=== PATIENT | male | born 1990 | race Caucasian/White ===

== ENCOUNTER 2016-08-02 17:48 | Inpatient (IN) ==
--- NOTE | 2016-08-02 17:57 | Emergency Department Note ---
Disposition Clinical Impression: New onset type 1 diabetes mellitus, uncontrolled Disposition: Admitted As Inpatient Condition: Good Forms: ED Satisfaction Letter Time of Disposition: 18:00 General Adult HPI - General Chief complaint: ED Recheck/Abnormal Lab/Rx Stated complaint: hyperglycemia Time Seen by Provider: 08/02/16 17:51 Source: patient Mode of arrival: EMS Limitations: no limitations Nursing Notes Reviewed: Yes Vital Signs Reviewed: Yes - History of Present Illness HPI Narrative: 25 year old male who comes from the [place] with the complaints of nausea increase in thirst and urination for last 2 weeks. Patient was found to have a blood glucose of 612 at the [facility] was given insulin was sent here for evaluation. Has no history of diabetes. He is a family history of diabetes Pt Subjective Complaint: Elevated blood sugar Onset (ago): week(s) (2) - Related Data Allergies Allergy/AdvReac Type Severity Reaction Status Date / Time No Known Allergies Allergy Verified 08/02/16 17:49 Constitutional: Denies: fever, chills, weakness, weight change Eyes: Denies: eye pain, eye discharge, vision change ENT ED: Denies: ear pain, throat pain, dental pain, hearing loss, epistaxis, congestion, dysphagia Cardiovascular: Denies: chest pain, palpitations, dyspnea on exertion, edema, syncope Respiratory: Denies: cough, dyspnea, wheezes, hemoptysis, stridor Gastrointestinal: Reports: other (C). Denies: abdominal pain, nausea, vomiting , diarrhea, constipation, hematemesis, melena, hematochezia Genitourinary: Reports: other (Polyuria). Denies: urgency, dysuria, frequency, hematuria Musculoskeletal: Denies: back pain, neck pain, arthralgia, myalgia Integumentary: Denies: rash, abrasion, lesions Neurological: Denies: headache, weakness, numbness, paresthesias, confusion, abnormal gait, vertigo Psychiatric: Denies: anxiety, depression, suicidal thoughts, homicidal thoughts , auditory hallucinations, visual hallucinations Endocrine: Denies: fatigue Hematological/Lymphatic: Denies: easy bleeding, easy bruising Allergic/Immunologic: Denies: facial swelling, urticaria Physical Exam - General Limitations: no limitations General appearance: alert, in no apparent distress - Head Head exam: atraumatic, normocephalic, normal inspection - Eye Eye exam: Present: normal appearance, PERRL, EOMI - ENT ENT exam: normal exam, normal oropharynx, mucous membranes moist - Neck Neck exam: Present: normal inspection, full ROM, trachea midline - Chest Chest inspection: Present: normal inspection, symmetric chest wall rise - Respiratory Respiratory exam: Present: normal lung sounds bilaterally - Cardiovascular Cardiovascular exam: Present: regular rate, normal rhythm, normal heart sounds - Abdominal Exam Abdominal exam: Present: soft, Non-Tender. Absent: tenderness, distention, guarding, rebound, rigidity - Extremities Exam Extremities exam: Present: normal inspection, full ROM. Absent: tenderness, pedal edema - Expanded Lower Extremity Exam Neurovascular/Tendon exam: Absent: motor deficit, sensory deficit, tendon deficit - Back Exam Back exam: Present: normal inspection - Neurological Exam Neurological exam: Present: alert, oriented X3 - Psychiatric Psychiatric exam: Present: normal affect, normal mood - Skin Skin exam: Present: warm, dry, intact, normal color Course - Reevaluation(s) Reevaluation #1: Patient was seen at the [facility]. . The white count was 6.3 H&H is 16 5 and 46.3 platelet count was 409,000. Sodium 129 potassium 4.1 chloride 93 carbon monoxide 19 glucose 612 P1 1491.09 GFR is greater than 60 mild elevation in transaminases. Bilirubin is normal triglycerides elevated at 1560 H was given IV fluids and regular insulin 10 units at the [facility]. Patient is a new onset diabetic and does have a slight decrease in CO2 at 19 however does not appear to be tachypneic. Liter fluid 10 units of insulin. We will admit the patient is new-onset diabetic. Time: 17:56 - Consultations Consultation #1: Discussed with Bernie Aden nurse practitioner we will admit the patient. Time: 17:58
[2016-08-02] MEDS: 0.9 % Sodium Chloride 1,000 ML IVC SCH (18:19)
[2016-08-02] MEDS ORDERED: Naloxone 0.4 MG/ML INJ IVP PRN (20:00)
[2016-08-02] MEDS ORDERED: Ibuprofen 400 MG TABLET PO PRN (20:04)
[2016-08-02] MEDS ORDERED: Insulin LISPRO 300 UNITS/3 ML VIAL SQ PRN (20:06)
[2016-08-02] MEDS ORDERED: *HR* Dextrose 50 % in Water (Syg) 50 ML SYRINGE IVP PRN (20:06)
[2016-08-02] MEDS ORDERED: Insulin Human Regular 100 UNIT in 0.9 % Sodium Chloride 100 ML IVC SCH ×2 (20:15→22:26)
[2016-08-02 20:33] LABS: BUN/Creatinine Ratio 10 (6-26); Blood Urea Nitrogen 11 mg/dL (8-26); Calcium 9.1 mg/dL (8.6-10.8); Carbon Dioxide 18 mEq/L (19-29); Chloride 98 mEq/L (98-109); Glucose 392 mg/dL (70-99); Osmolality,Calculated 292 (280-300); Potassium 4.1 mEq/L (3.5-4.5); Sodium 133 mEq/L (136-145); eGFR For African Americans > 60 (> 60); eGFR For Non-African Americans > 60 (> 60)
--- NOTE | 2016-08-02 20:46 | Internal Med History&Physical ---
Date of Encounter: 08/02/16 Time of Encounter: 20:42 Assessment and Plan (1) New onset type 1 diabetes mellitus, uncontrolled Current visit: Yes Status: Acute Patient with no reported past medical history presents with polydipsia, polyuria , nausea, and blood sugar of 612. Most likely type 1 diabetes. C-peptide, Hgb A1c ordered Insulin drip check blood sugars Q1 hr until blood sugar is < 200. Once blood sugar < 200, check blood sugars Q4hr and use sliding scale correction dose insulin Recheck chemistry at 11pm and 4am Consults to Endocrinology, early childhood educator aide and pharmacy education (2) DKA (diabetic ketoacidoses) Current visit: Yes Status: Acute Patient with new onset diabetes. Anion gap of 17. Initial blood sugar of 612, now down to 402. IV fluids 0.9NS at 200mL/hr UA with micro Insulin drip check blood sugars Q1 hour until blood sugar < 200. Once blood sugar less than 200 and anion gap is closed, stop insulin drip, and check blood sugars Q4hrs with sliding scale correction dose. Recheck chemistry at 11pm and 4am Qualifiers: Diabetes mellitus type: type 1 Diabetes mellitus complication detail: without coma Qualified Code(s): E10.10 - Type 1 diabetes mellitus with ketoacidosis without coma (3) Hypertriglyceridemia Current visit: Yes Status: Acute Triglycerides of 1560. Should come down as blood sugars come down. Will start on gemfibrozil as well. (4) DVT prophylaxis Current visit: Yes Status: Acute encourage ambulation anti-embolic stockings Lovenox 40mg SQ daily Internal Medicine - H&P: HPI Chief complaint: new onset diabetes Admitted From: Emergency Dept Plans for Post Hospital Care: Home History of present illness: Mr. Ramirez is a 25 year old male no past medical history who presented to the emergency department from the [place] with blood sugar of 612. Patient reports he presented to the [place] for increasing nausea, increasing thirst, and increasing urination over the past 2 weeks. Other labs from the [place] showed patient has an anion gap of 17, sodium of 129, chloride of 93, CO2 of 19. Triglycerides were also some severely elevated at 1560. On exam, patient alert and oriented, in no acute distress. Heart has regular rate and rhythm lungs are clear bilaterally to auscultation. Past Med Surg Social Fam HX - Past Medical History Medical history: no medical history Psychiatric history: no psych history - Past Surgical History Surgical History: no surgical history - Social History Smoking Status: Never smoker Smokeless Tobacco Status: No Alcohol use: occasionally Drug use: none - Family History Mother Living Status: Still Living Father Living Status: Still Living Internal Medicine - H&P: Meds Ibuprofen [Motrin] 400 mg PO Q4HR PRN 08/02/16 [History] Allergies shellfish derived Adverse Reaction (Verified 08/02/16 20:53) Itching All Systems PM: A 10-system review of systems was performed and is negative for pertinent findings except as documented above in the HPI. - Constitutional Constitutional: no chills, no fever(s), no night sweats - EENT Eyes: no change in vision, no discharge, no pain, no photophobia Ears: no ear discharge, no ear pain, no tinnitus Nose, mouth and throat: no dysphagia, no nasal discharge, no neck pain, no sore throat - Cardiovascular Cardiovascular ROS IM: no chest pain, no diaphoresis, no dyspnea, no lightheadedness, no palpitations, no syncope - Respiratory Respiratory: no cough, no dyspnea, no wheezing, no excessive phlegm production - Gastrointestinal Gastrointestinal: nausea, no abdominal pain, no diarrhea, no hematemesis, no hematochezia, no melena, no vomiting - Genitourinary Genitourinary ROS male: urinary frequency - Musculoskeletal Musculoskeletal ROS IM: no numbness, no tingling - Integumentary Integumentary IM: no rash, no unusual bruising - Neurological Neurological ROS: no confusion, no convulsions, no focal weakness, no numbness, no tingling, no tremor(s) - Endocrine Endocrine IM: polydipsia, polyuria - Hematologic/Lymphatic Hematologic/Lymphatic: no easy bruising - Constitutional Vitals: Temp Pulse Resp BP Pulse Ox 98.4 F 97 18 124/90 97 08/02/16 17:56 08/02/16 18:39 08/02/16 18:40 08/02/16 18:40 08/02/16 18:39 General appearance: Present: A&O X 3, pleasant, no acute distress - Head Head exam: Present: atraumatic, normocephalic - Eye Eye exam: Present: PERRL, conjuntiva pink, sclera anicteric Pupils: Present: PERRL - Neck Neck exam general surgery: Present: supple, trachea midline. Absent: lymphadenopathy - Respiratory Respiratory exam: Present: CTAB. Absent: accessory muscle use, rales, rhonchi, wheezes - Cardiovascular Cardiovascular exam: Present: RRR, +S1, +S2. Absent: diastolic murmur, gallop, rubs, systolic murmur - GI/Abdominal GI/Abdominal exam: Present: normal bowel sounds, soft, no peritoneal signs. Absent: distended, tenderness - Extremities Exam Extremities exam: Present: warm, radial pulses palpable and symetrical. Absent : calf tenderness, cyanotic, pedal edema - Neurological Exam Neurological exam: Present: CN II-XII intact, oriented X3, no focal deficits, pronater drift. Absent: facial droop, speech deficit - Skin Skin exam: Present: dry, intact Internal Med - H&P Results - Labs CBC & Chem 7: 08/02/16 18:25 Labs: BMP 08/02/16 08/02/16 18:25 18:25 Sodium 133 L Potassium 4.1 Chloride 98 Carbon Dioxide 18 L BUN 11 Creatinine 1.11 Glucose 402 H 392 H Calcium 9.1 Labs from [facility]: Hgb 15.6 HCT 46.3 WBC 6.3 PLT 409 Trig 1560
[2016-08-02] MEDS ORDERED: 0.9 % Sodium Chloride 1,000 ML IVC ONE ×2 (22:26)
[2016-08-02 22:56] LABS: VBG PH 7.38 pH Units (7.32-7.42)
[2016-08-02 23:07] LABS: BUN/Creatinine Ratio 11 (6-26); Blood Urea Nitrogen 11 mg/dL (8-26); Calcium 8.8 mg/dL (8.6-10.8); Carbon Dioxide 18 mEq/L (19-29); Chloride 101 mEq/L (98-109); Glucose 336 mg/dL (70-99); Osmolality,Calculated 293 (280-300); Potassium 3.8 mEq/L (3.5-4.5); Sodium 135 mEq/L (136-145); eGFR For African Americans > 60 (> 60); eGFR For Non-African Americans > 60 (> 60)
--- NOTE | 2016-08-02 23:14 | Event Note ---
Date of Encounter: 08/02/16 Time of Encounter: 23:12 Patient seen and examined withpetitioner. 2 weeks of symptoms suggestive of diabetes mellitus including polyuria polydipsia nocturia 12 pound weight loss increased thirst. Patient labs show that he is an hyperglycemic hyperosmolar state. He has an annoying gap 17 and slight ketones in his body however he is not acidotic pH 7.38. Will give the patient 2 L of fluid will keep on insulin drip for a short period. Hemoglobin A-1 C will be checked in the morning. Patients also has hypertriglyceridemia with triglycerides 1500. Should improve with control of hyperglycemia. However to avoid risk pancreatitis triglycerides will be treated with fibrates since it is over 500. Patient will be admitted as inpatient.
[2016-08-03] MEDS ORDERED: *HR* Dextrose 50 % in Water (Syg) 50 ML SYRINGE IVP PRN ×2 (00:22→00:43)
[2016-08-03] MEDS ORDERED: Insulin Regular, Human 100 UNIT/ML IV PRN (00:22)
[2016-08-03] MEDS ORDERED: Insulin Human Regular 100 UNIT in 0.9 % Sodium Chloride 100 ML IVC SCH (00:26)
[2016-08-03] MEDS ORDERED: Insulin LISPRO 300 UNITS/3 ML VIAL SQ PRN (00:31)
[2016-08-03 00:40] LABS: Bilirubin,Urine Negative (Negative); Blood,Urine Negative (Negative); Clarity,Urine Clear (Clear); Color,Urine Yellow (Yellow); Glucose,Urine (UA) >=1000 mg/dL (Normal); Ketones,Urine 40 mg/dL (Negative); Leukocyte Esterase,Urine Negative (Negative); Nitrite,Urine Negative (Negative); Protein,Urine 30 mg/dL (Neg-Trace); Specific Gravity,Urine > 1.030 (1.010-1.025); Urobilinogen,Urine Normal (Normal)
[2016-08-03 00:41] LABS: Bacteria,Urine None Seen per hpf (None-Few); Hyaline Casts,Urine None Seen per lpf (None-Few); RBC,Urine 0-3 per hpf (0-3); Squamous Epithelial Cell,Urine Many per lpf (None-Few); WBC,Urine 0-3 per hpf (0-3)
[2016-08-03] MEDS: Insulin Human Regular 100 UNIT in 0.9 % Sodium Chloride 100 ML IVC SCH (01:01)
[2016-08-03] MEDS: 0.9 % Sodium Chloride 1,000 ML IVC SCH ×5 (02:47→21:49)
[2016-08-03 03:21] LABS: Basophils % 0.4 %; Eosinophils # 0.1 K/mcL (0.0-0.6); Eosinophils % 1.3 %; Hematocrit 39.9 % (37.5-50.1); Hemoglobin 14.1 g/dL (12.9-16.9); Immature Granulocytes % 0.3 % (0-4); Lymphocytes # 1.7 K/mcL (0.6-4.6); Lymphocytes % 23.4 %; Mean Corpuscular HGB Conc 35.3 g/dL (31.6-35.5); Mean Corpuscular Hemoglobin 30.5 pg (28.0-33.3); Mean Corpuscular Volume 86.4 fL (83.0-100.0); Mean Platelet Volume 9.7 fL (9.4-12.4); Monocytes # 0.3 K/mcL (0.0-1.3); Monocytes % 4.6 %; Platelet Count 318 K/mcL (140-400); Red Blood Count 4.62 M/mcL (4.19-5.50); Red Cell Distribution Width 12.7 % (11.5-14.5)
[2016-08-03 03:26] LABS: Hemoglobin A1C 12.2 %
[2016-08-03 03:30] LABS: BUN/Creatinine Ratio 13 (6-26); Blood Urea Nitrogen 11 mg/dL (8-26); Calcium 8.2 mg/dL (8.6-10.8); Carbon Dioxide 21 mEq/L (19-29); Chloride 107 mEq/L (98-109); Osmolality,Calculated 296 (280-300); Potassium 3.3 mEq/L (3.5-4.5); Sodium 139 mEq/L (136-145); eGFR For African Americans > 60 (> 60); eGFR For Non-African Americans > 60 (> 60)
[2016-08-03 03:31] LABS: Glucose 252 mg/dL (70-99)
[2016-08-03] MEDS: *HR* Enoxaparin 40 MG/0.4 ML SYRINGE SQ SCH (06:13)
[2016-08-03] MEDS: Nystatin SUSP 5 ML UD.LIQ PO SCH ×5 (08:18→21:06)
[2016-08-03] MEDS: Ondansetron ODT 4 MG TAB.RAPDIS SL PRN ×2 (10:58→16:57)
[2016-08-03 12:26] LABS: BUN/Creatinine Ratio 11 (6-26); Blood Urea Nitrogen 9 mg/dL (8-26); Calcium 8.1 mg/dL (8.6-10.8); Carbon Dioxide 23 mEq/L (19-29); Chloride 108 mEq/L (98-109); Glucose 197 mg/dL (70-99); Osmolality,Calculated 292 (280-300); Potassium 3.8 mEq/L (3.5-4.5); Sodium 139 mEq/L (136-145); eGFR For African Americans > 60 (> 60); eGFR For Non-African Americans > 60 (> 60)
--- NOTE | 2016-08-03 13:18 | Internal Med Progress Note ---
Date of Encounter: 08/03/16 Time of Encounter: 13:17 - Assessment and plan (1) Hypophosphatemia Current Visit: Yes Status: Acute (2) DKA (diabetic ketoacidoses) Current Visit: Yes Status: Acute Qualifiers: Diabetes mellitus type: other specified (including ALCON) Diabetes mellitus complication detail: without coma Qualified Code(s): E13.10 - Other specified diabetes mellitus with ketoacidosis without coma (3) Hypertriglyceridemia Current Visit: Yes Status: Acute - Time Spent With Patient Plan Will and had to give him he has 10 units subcutaneous use twice a day, insulin sliding scale every 4 hour, turn off insulin drip in 1 hour, replace phosphorus check magnesium awaiting C-peptide result. Consider adding small dose of metformin next a.m. okay to transfer out from ICU to telemetry. Check 25- hydroxy vitamin D which can be a contributing factor for type 2 diabetes. Counseling patient about diabetes, counseled about medication compliance,. Diabetic education. Check electrolytes next a.m. Greater than 35 minutes - Subjective Interval history: Patient denies any chest pain or shortness of breath. Patient denies any nausea or vomiting. Patient denies any abdominal pain. Patient denies any dizziness or lightheadedness - Constitutional Vitals: Temp Pulse Resp BP Pulse Ox 98.9 F 85 14 129/74 96 08/03/16 11:00 08/03/16 12:00 08/03/16 12:00 08/03/16 12:00 08/03/16 12:00 General appearance: Present: pleasant, no acute distress - Head Head exam: Present: atraumatic, normocephalic - Neck Neck exam general surgery: Present: supple, trachea midline. Absent: lymphadenopathy - Respiratory Respiratory exam: Present: CTAB. Absent: accessory muscle use, rales, rhonchi, wheezes - Cardiovascular Cardiovascular exam: Present: RRR, +S1, +S2. Absent: diastolic murmur, gallop, rubs, systolic murmur - GI/Abdominal GI/Abdominal exam: Present: normal bowel sounds, soft, no peritoneal signs. Absent: distended, tenderness - Extremities Exam Extremities exam: Present: warm, radial pulses palpable and symetrical. Absent : calf tenderness, cyanotic, pedal edema - Neurological Exam Neurological exam: Present: CN II-XII intact, oriented X3, no focal deficits. Absent: pronater drift, facial droop, speech deficit - Skin Skin exam: Present: dry, intact Internal Medicine: Result - Labs CBC & Chem 7: 08/03/16 03:11 08/03/16 12:03 Labs: Short CBC 08/03/16 Range/Units 03:11 WBC 7.2 (4.3-11.1) K/mcL Hgb 14.1 (12.9-16.9) g/dL Hct 39.9 (37.5-50.1) % Plt Count 318 (140-400) K/mcL Neutrophils # 5.0 (1.6-8.9) K/mcL BMP 08/02/16 08/03/16 08/03/16 22:35 03:11 12:03 Sodium 135 L 139 139 Potassium 3.8 3.3 L 3.8 Chloride 101 107 108 Carbon Dioxide 18 L 21 23 BUN 11 11 9 Creatinine 1.04 0.88 0.81 Glucose 336 H 252 H 197 H Calcium 8.8 8.2 L 8.1 L Consult Discharge Plan - Plan Referrals: [facility] [Outside]
[2016-08-03] MEDS ORDERED: Potassium Phosphate 44 MEQ in 0.9 % Sodium Chloride 250 ML IVPB ONE (15:46)
[2016-08-03] MEDS ORDERED: Phenylephrine Nasal 0.5% 15 ML BOTTLE NS ONE (17:39)
[2016-08-03] MEDS ORDERED: Ondansetron 4 MG/2 ML VIAL IVP ONE (17:40)
[2016-08-03] MEDS ORDERED: Saline Nasal Spray 44 ML BOTTLE NS PRN (17:40)
[2016-08-03] MEDS: Insulin LISPRO 300 UNITS/3 ML VIAL SQ SCH ×2 (18:10→21:07)
[2016-08-03] MEDS: Insulin DETEMIR 100 UNIT/ML X5UNITS SQ SCH (22:24)
[2016-08-04] MEDS: Insulin LISPRO 300 UNITS/3 ML VIAL SQ SCH ×5 (01:07→16:17)
[2016-08-04] MEDS: Insulin Human Regular 100 UNIT in 0.9 % Sodium Chloride 100 ML IVC SCH (01:12)
[2016-08-04] MEDS: *HR* Enoxaparin 40 MG/0.4 ML SYRINGE SQ SCH (06:29)
[2016-08-04 06:52] LABS: Basophils % 0.4 %; Eosinophils # 0.1 K/mcL (0.0-0.6); Eosinophils % 0.9 %; Hematocrit 40.3 % (37.5-50.1); Hemoglobin 13.8 g/dL (12.9-16.9); Immature Granulocytes % 0.2 % (0-4); Lymphocytes # 1.4 K/mcL (0.6-4.6); Mean Corpuscular HGB Conc 34.2 g/dL (31.6-35.5); Mean Corpuscular Hemoglobin 30.8 pg (28.0-33.3); Monocytes # 0.6 K/mcL (0.0-1.3); Monocytes % 10.1 %; Neutrophils # 3.4 K/mcL (1.6-8.9); Platelet Count 302 K/mcL (140-400); Red Blood Count 4.48 M/mcL (4.19-5.50); Red Cell Distribution Width 13.1 % (11.5-14.5); Segmented Neutrophils % 62.4 %
[2016-08-04 07:10] LABS: BUN/Creatinine Ratio 9 (6-26); Blood Urea Nitrogen 7 mg/dL (8-26); Calcium 8.2 mg/dL (8.6-10.8); Carbon Dioxide 25 mEq/L (19-29); Chloride 107 mEq/L (98-109); Glucose 157 mg/dL (70-99); Magnesium 1.8 mg/dL (1.6-2.6); Osmolality,Calculated 287 (280-300); Potassium 4.1 mEq/L (3.5-4.5); Sodium 138 mEq/L (136-145); eGFR For African Americans > 60 (> 60); eGFR For Non-African Americans > 60 (> 60)
[2016-08-04 07:11] LABS: Phosphorous 2.9 mg/dL (2.3-4.7)
[2016-08-04] MEDS: 0.9 % Sodium Chloride 1,000 ML IVC SCH (08:01)
[2016-08-04] MEDS: Insulin DETEMIR 100 UNIT/ML X5UNITS SQ SCH (09:20)
[2016-08-04] MEDS: Nystatin SUSP 5 ML UD.LIQ PO SCH ×2 (09:54→16:26)
[2016-08-04 10:11] LABS: Chol/HDL Ratio 6.9 (0-4.9); Cholesterol 137 mg/dL (< 200); HDL Cholesterol 20 mg/dL (40-59); LDL Cholesterol,Calculated 52 mg/dL (0-99); Triglycerides 325 mg/dL (< 150)
--- NOTE | 2016-08-04 12:24 | Discharge Summary ---
Date of Encounter: 08/04/16 Time of Encounter: 11:00 - Discharge Diagnosis (1) Type 2 diabetes mellitus with hyperosmolarity without nonketotic hyperglycemic-hyperosmolar coma ([facility]) Priority: Primary Status: Acute (2) Hypertriglyceridemia Priority: Primary Status: Acute (3) Hypophosphatemia Priority: Secondary Status: Acute (4) Obesity (BMI 30.0-34.9) Priority: Secondary Status: Chronic - Discharge Medications Prescriptions: Blood Sugar Diagnostic [Glucose Test Strip] 1 each MC DAILY #60 strip Blood-Glucose Meter [Blood Glucose Monitor] 1 kit MC DAILY #1 each Gemfibrozil [Lopid] 600 mg PO BIDWM #60 tablet Insulin Glargine [Lantus] 20 unit SQ HS #1 vial Lancets 1 each MC DAILY #60 each Metformin [Glucophage] 500 mg PO BIDWM #60 tablet [place], Insulin Disp., Safety [Healthy Accents Unifine Pentip] 1 each MC DAILY #60 dis.needle Home Medications: Ibuprofen [Motrin] 400 mg PO Q4HR PRN 08/02/16 [History] Blood Sugar Diagnostic [Glucose Test Strip] 1 each MC DAILY #60 strip 08/04/16 [ Rx] Blood-Glucose Meter [Blood Glucose Monitor] 1 kit MC DAILY #1 each 08/04/16 [Rx] Gemfibrozil [Lopid] 600 mg PO BIDWM #60 tablet 08/04/16 [Rx] Insulin Glargine [Lantus] 20 unit SQ HS #1 vial 08/04/16 [Rx] Lancets 1 each MC DAILY #60 each 08/04/16 [Rx] Metformin [Glucophage] 500 mg PO BIDWM #60 tablet 08/04/16 [Rx] Markle, Insulin Disp., Safety [Healthy Accents Unifine Pentip] 1 each MC DAILY #60 dis.needle 08/04/16 [Rx] Allergies/Adverse Reactions: Allergies shellfish derived Adverse Reaction (Verified 08/02/16 20:53) Itching Date of admission: 08/02/16 21:08 [facility] care physician[facility] Consults: 08/03/16 00:22 Consult for Pharmacy Education [CONS] Routine Reason for Consult: NEWLY DIAGNOSED DM Call Completed: No Consult to Endocrinology [CONS] Routine Consulting Provider: [facility] [place] Reason for Consult: NEWLY DIAGNOSED Call Completed: No 08/04/16 09:34 Consult to Postal Service Window Clerk [CONS] Stat Comment: Discharging clinician: Barrett Stout Anticipated date of discharge: 08/04/16 - Patient Status Disposition: Home, Self-Care Condition: Good Functional capacity at discharge: independent ambulation Overall status at discharge: patient is progressing back to baseline - Discharge Instructions Follow Up With: [facility] [Outside] - Diet and Activity Activity: resume usual activities as tolerated Diet: diabetic diet Interval History: 25 year old male no past medical history who presented to the emergency department from the [place] with blood sugar of 612. Patient reports he presented to the [place] for increasing nausea, increasing thirst, and increasing urination over the past 2 weeks. Other labs from the [place] showed patient has an anion gap of 17, sodium of 129, chloride of 93, CO2 of 19. Triglycerides were also some severely elevated at 1560. Hospital course: Mr. Ramirez is a 25 year old male admitted for management of newly diagnosed DM , possibly Type II, with Hyperglycemic hyperosmolarity Patient's PH and ABG was unremarkable, hence he is not DKA, his ketonemia and ketonuria were possibly from dehydration from polyuria and polydipsia His A1C is 12.2 TG has improved from 1500 to 325 His Blood sugars have been controlled with Levemir 10units bid C-peptide is pending Patient is seen at bedside this morning with RN He denies new complains He was overwhelmed with the new diagnosis of Diabetes Mellitus, Hypertriglyceridemia There is no family history of diabetes Given his presentation, he most likely has type II DM He is stable for discharge home He will follow up with PCP at [place] 10 minutes spent at the bedside educating patient on insulin, hypoglycemia, the diagnosis of diabetes and its possible complications and lifestyle modification. he is also educated on possible side effects of Meformin He is provided with patient education materials newspaper vendor at bedside to educate patient as well Scripts provided for Gemfibrozil, Metformin, Glargine, Glucometer, strips, supplies Verbalized understanding Follow up with PCP in 1-2 weeks - Time Spent with Patient Total time spent providing and/or coordinating discharge services: Less than 30 minutes - Constitutional Vitals: Temp Pulse Resp BP Pulse Ox 97.9 F 87 16 135/82 95 08/04/16 11:50 08/04/16 11:14 03/09/17 11:14 08/04/16 11:14 08/04/16 11:14 General appearance: Present: A&O X 3, pleasant, no acute distress, obese - Head Head exam: Present: atraumatic, normocephalic - Eye Eye exam: Present: PERRL, conjuntiva pink, sclera anicteric Pupils: Present: PERRL - Neck Neck exam general surgery: Present: supple, trachea midline. Absent: lymphadenopathy - Respiratory Respiratory exam: Present: CTAB. Absent: accessory muscle use, rales, rhonchi, wheezes - Cardiovascular Cardiovascular exam: Present: RRR, +S1, +S2. Absent: diastolic murmur, gallop, rubs, systolic murmur - GI/Abdominal GI/Abdominal exam: Present: normal bowel sounds, soft, no peritoneal signs. Absent: distended, tenderness - Extremities Exam Extremities exam: Present: warm, radial pulses palpable and symetrical. Absent : calf tenderness, cyanotic, pedal edema - Neurological Exam Neurological exam: Present: CN II-XII intact, oriented X3, no focal deficits. Absent: pronater drift, facial droop, speech deficit - Skin Skin exam: Present: dry, intact
[2016-08-04 16:36] VITALS: BP 125/79
== END 2016-08-04 16:37 | disposition home or self-care (01) | DRG 638 ==
LOC: 3BNU 17:48 → EMEROO 17:48 → 3ANU 18:19 → SUATTDRO 21:08 → ICNU 08-03 10:51
PROVIDERS: ADMIT Nurse Practitioner Acute Care; ATTEND Internal Medicine